=== PATIENT | female | born 1945 | race Two or more races ===

== ENCOUNTER 2017-04-07 12:07 | Emergency (ER) | payer MEDICARE, BC ==
[2017-04-07 13:48] VITALS: BP 112/67
--- NOTE | 2017-04-07 13:55 | UC ---
Skin Complaint HPI - HPI Summary HPI Summary: tick on right side of abdomen for less than 24 hours - History of Current Complaint Chief Complaint: UCSkin Time Seen by Provider: 04/07/17 13:48 Stated Complaint: TICK BITE Hx Obtained From: Patient ?: No Onset/Duration: Sudden Onset Skin Exposure Onset/Duration: Hours Ago Timing: Constant Onset Severity: Mild Current Severity: Mild Pain Intensity: 2 Pain Scale Used: 0-10 Numeric Location: Discrete Aggravating: Nothing Alleviating: Nothing Associated Signs & Symptoms: Positive: Negative Related History: Insect Bite/Sting - Allergy/Home Medications Allergies/Adverse Reactions: Allergies Allergy/AdvReac Type Severity Reaction Status Date / Time Codeine Allergy GI Upset Verified 04/07/17 13:49 Penicillins Allergy Hives Verified 04/07/17 13:49 Propoxyphene Allergy GI Upset Verified 04/07/17 13:49 [From Darvocet-N] Sulfa Antibiotics Allergy Hives Verified 04/07/17 13:49 Home Medications: Home Medications Cholecalciferol [Vitamin D] 2,000 units PO DAILY 04/07/17 [History Confirmed ] Doxylamine Succinate (Sleep) [Eql Nighttime Sleep Aid] 1 tab PO BEDTIME [History Confirmed 04/07/17] Levothyroxine TAB* [Synthroid 100 MCG TAB*] 100 mcg PO DAILY 04/07/17 [History Confirmed 04/07/17] Review of Systems Constitutional: Negative Skin: Other - Tick on left side of abdomen---for less than 24 hours Eyes: Negative ENT: Negative Respiratory: Negative Cardiovascular: Negative Gastrointestinal: Negative Genitourinary: Negative Motor: Negative Neurovascular: Negative Musculoskeletal: Negative Neurological: Negative Psychological: Negative All Other Systems Reviewed And Are Negative: Yes PMH/Surg Hx/FS Hx/Imm Hx Previously Healthy: No Endocrine History Of: Reports: Thyroid Disease - Hypothroidism Cancer History Of: Denies: Breast Cancer - Surgical History Surgical History: Yes Surgery Procedure, Year, and Place: Kidney Donor, T & A; Gallbladder removed; [facility]; Etctopic - Family History Known Family History: Positive: None Family History: no reported cardiovascular issues in family lineage - Social History Occupation: Retired Lives: With Family Alcohol Use: Daily Alcohol Amount: 1 glass wine daily Substance Use Type: None Smoking Status (MU): Former Smoker When Did the Patient Quit Smoking/Using Tobacco: 1967 Physical Exam Triage Information Reviewed: Yes Appearance: Well-Appearing, No Pain Distress, Well-Nourished Vital Signs: Initial Vital Signs Temp 97.7 F 04/07/17 13:42 Pulse 56 04/07/17 13:42 Resp 16 04/07/17 13:42 BP 112/67 04/07/17 13:42 Pulse Ox 98 04/07/17 13:42 Vital Signs Reviewed: Yes Eye Exam: Normal Eyes: Positive: Conjunctiva Clear ENT Exam: Normal ENT: Positive: Normal ENT inspection, Hearing grossly normal. Negative: Nasal congestion, Nasal drainage, Trismus, Muffled/hoarse voice Dental Exam: Normal Neck exam: Normal Neck: Positive: Supple, Nontender, No Lymphadenopathy Respiratory Exam: Normal Respiratory: Positive: Chest non-tender, Lungs clear, Normal breath sounds, No respiratory distress, No accessory muscle use Cardiovascular Exam: Normal Cardiovascular: Positive: RRR, Pulses Normal, Brisk Capillary Refill Musculoskeletal Exam: Normal Musculoskeletal: Positive: Strength Intact, ROM Intact, No Edema Neurological Exam: Normal Neurological: Positive: Alert, Muscle Tone Normal Psychological Exam: Normal Skin: Positive: Other - tick right side of abdomen Re-Evaluation - Re-Evaluation First Eval Change: Improved - tick removed with "tick twister" alive and intact Course/Dx - Course Course Of Treatment: soap and water wash follow with pcp prn - Differential Diagnoses - Skin Complaint Differential Diagnoses: Cellulitis, Local Allergic Reaction, Tick Born Illness - Diagnoses Provider Diagnoses: Tick removal right side of abdomen Discharge - Discharge Plan Condition: Stable Disposition: HOME Patient Education Materials: Tick Bite (ED) Referrals: Kaiser Engle MD [Primary Care Provider] - If Needed
== END 2017-04-07 14:10 | disposition home or self-care (01) ==
LOC: UCEAST 12:07
DX: S30.861A Insect bite (nonvenomous) of abdominal wall, initial encounter (principal); W57.XXXA Bitten or stung by nonvenomous insect and other nonvenomous arthropods, initial encounter; Z88.5 Allergy status to narcotic agent; Z88.3 Allergy status to other anti-infective agents; Z88.0 Allergy status to penicillin; E03.9 Hypothyroidism, unspecified; Z87.891 Personal history of nicotine dependence
CPT/HCPCS: 99211; G0463

== ENCOUNTER → 2017-04-07 23:17 | Emergency (ER) | payer MEDICARE, BC ==
[2017-04-07 23:24] VITALS: BP 133/73
--- NOTE | 2017-04-17 21:22 | ED ---
Tito Fajardo Billy, scribed for Burt Jackson MD on 04/08/17 at 0008 . Complex/Multi-Sys Presentation - HPI Summary HPI Summary: Patient is a 71 year-old female coming to [facility] for evaluation of a lump behind the left ear. She had a tick removed from her torso earlier today so she was concerned. However, she states that by the time she was seen in the ED, the lump had disappeared and she had no complaints or symptoms. - History Of Current Complaint Chief Complaint: EDGeneral Time Seen by Provider: 04/08/17 00:06 Hx Obtained From: Patient Onset/Duration: Gradual Onset Timing: Constant Severity Currently: None Severity Initially: Moderate Aggravating Factor(s): none Alleviating Factor(s): spontaneous resolution - Allergies/Home Medications Allergies/Adverse Reactions: Allergies Allergy/AdvReac Type Severity Reaction Status Date / Time Codeine Allergy GI Upset Verified 04/07/17 23:24 Penicillins Allergy Hives Verified 04/07/17 23:24 Propoxyphene Allergy GI Upset Verified 04/07/17 23:24 [From Darvocet-N] Sulfa Antibiotics Allergy Hives Verified 04/07/17 23:24 PMH/Surg Hx/FS Hx/Imm Hx Endocrine/Hematology History: Reports: Hx Thyroid Disease - Hypothroidism - Cancer History Hx Chemotherapy: No Hx Radiation Therapy: No - Surgical History Surgery Procedure, Year, and Place: Kidney Donor, T & A; Gallbladder removed; [facility]; Etctopic Infectious Disease History: No Infectious Disease History: Denies: Traveled Outside the [place] in Last 30 Days - Family History Family History: no reported cardiovascular issues in family lineage - Social History Alcohol Use: Daily Alcohol Amount: 1 glass wine daily Substance Use Type: Reports: None Smoking Status (MU): Former Smoker Review of Systems Constitutional: Negative Eyes: Negative ENT: Negative Cardiovascular: Negative Respiratory: Negative Gastrointestinal: Negative Genitourinary: Negative Musculoskeletal: Negative Skin: Negative Neurological: Negative Psychological: Normal All Other Systems Reviewed And Are Negative: Yes Physical Exam Triage Information Reviewed: Yes Vital Signs On Initial Exam: Initial Vitals Temp Pulse Resp BP Pulse Ox 98.7 F 70 14 133/73 97 04/07/17 23:22 04/07/17 23:22 04/07/17 23:22 04/07/17 23:22 04/07/17 23:22 Vital Signs Reviewed: Yes Appearance: Positive: Well-Appearing, No Pain Distress Skin: Positive: Warm Head/Face: Positive: Normal Head/Face Inspection Eyes: Positive: EOMI, LORNA ENT: Positive: Hearing grossly normal, TMs normal Neck: Positive: Supple, Nontender, No Lymphadenopathy Respiratory/Lung Sounds: Positive: Breath Sounds Present Cardiovascular: Positive: RRR Abdomen Description: Positive: Nontender, Soft Musculoskeletal: Positive: Strength/ROM Intact Neurological: Positive: Alert, Oriented to Person Place, Time Diagnostics - Vital Signs Vital Signs Temp Pulse Resp BP Pulse Ox 04/07/17 23:22 98.7 F 70 14 133/73 97 - Laboratory Lab Statement: Any lab studies that have been ordered have been reviewed, and results considered in the medical decision making process. Complex Multi-Symp Course/Dx - Diagnoses Provider Diagnoses: Normal physical exam Discharge - Discharge Plan Condition: Stable Disposition: HOME Patient Education Materials: Normal Exam (ED) Referrals: Kaiser Engle MD [Primary Care Provider] - The documentation as recorded by the Tito castañeda Billy accurately reflects the service I personally performed and the decisions made by me, Burt Jackson MD.
== END | disposition home or self-care (01) ==
LOC: ED 23:17
DX: H93.8X2 Other specified disorders of left ear (principal); Z87.891 Personal history of nicotine dependence
CPT/HCPCS: 99281